=== PATIENT | male | born 1975 | race Caucasian/White ===

== ENCOUNTER 2018-04-18 21:11 | Emergency (ER) | payer OTHER ==
[~2018-04-18] VITALS: Ht 177.8 cm; Wt 93.0 kg
[~2018-04-18 21:11] MED LIST: ALEVE220 MG PO; AMBIEN 10 MG TA10 MG PO; AMITRIPTYLINE H10 M3 PO; FLEXERIL PO; HYDROCODON-ACE1 EAC5 PO; HYDROCODONE-AP1 EAC6 PO; HYDROCODONE-APA1 TA1 PO; IBUPROFEN 800800 M1 PO; KEFLEX500 MG PO; MEDROLDOSEPACK PO; MOM PO; NOHOMEMEDICATIONS; PERCOCET 5-3251 EACH PO; ULTRAM 50MG TAB50 MG PO; VANCOMYCIN1.5 GM/250 IV; VICODIN PO
[2018-04-18] MEDS ORDERED: AMBIEN 5 MG TABL5 M1 (21:19)
[2018-04-18 21:47] LABS: HEMATOCRIT 42.8 % (42.0-52.0); HEMOGLOBIN 14.8 gm/dL (14.0-18.0); MCH 31.5 pg (26.0-34.0); MCHC 34.5 g/dL (28.0-37.0); MCV 91.3 fL (80.0-100.0); MPV 7.6 fl. (7.2-11.1); NUCLEATED RBCS 0 /100WBC; PLATELET COUNT* 395 thou/uL (150-400); RBC 4.69 mil/uL (4.50-6.00); RDW-CV 12.7 % (10.5-14.5); WBC 15.6 thou/uL (4.0-11.0)
[2018-04-18 21:55] LABS: CALCIUM 9.4 mg/dL (8.5-10.1); CREATININE 1.2 mg/dL (0.6-1.3)
[2018-04-18 21:59] LABS: ALBUMIN 3.8 g/dL (3.4-5.0); TOTAL BILIRUBIN 0.3 mg/dL (<0.1-1.0); TOTAL PROTEIN 7.4 g/dL (6.4-8.2)
[2018-04-18 22:16] LABS: ABSOLUTE EOSINOPHILS 0.3 thou/uL (0.0-0.7); ABSOLUTE LYMPHOCYTES 3.6 thou/uL (0.8-5.3); ABSOLUTE MONOCYTES 0.5 thou/uL (0.0-1.2); ABSOLUTE NEUTROPHILS 11.2 thou/uL (1.6-8.1); ANISOCYTOSIS Occasional; PLATELET ESTIMATE ADEQUATE; TOXIC GRANULATION 1+
[2018-04-18 23:09] LABS: URINE CLARITY HAZY; URINE COLOR ORANGE
[2018-04-18] MEDS ORDERED: NORCO 5-325 TA1 EACH PO (23:14)
[2018-04-18] MEDS ORDERED: BACTRIM DS TAB1 EACH PO (23:14)
[2018-04-18 23:16] LABS: ACETEST (KETONE CONFIRMATORY) Negative (Negative); ICTOTEST (BILI CONFIRMATORY) Negative (Negative); URINE BILIRUBIN ND (Negative); URINE BLOOD ND (Negative); URINE GLUCOSE-RANDOM ND (Negative); URINE KETONES ND (Negative); URINE LEUKOCYTES-REFLEX ND (Negative); URINE NITRITE-REFLEX ND (Negative); URINE PROTEIN ND (Negative); URINE REDUCING SUBSTANCE NEGATIVE (Negative); URINE SPECIFIC GRAVITY 1.015 (1.005-1.030); URINE UROBILINOGEN ND E.U./dl (0.2-1.0)
[2018-04-18 23:17] LABS: BACTERIA-REFLEX >30 Many /HPF (None Seen); CASTS None Seen /LPF (None Seen); CRYSTALS None Seen /LPF (None Seen); MUCUS 0-3 Light strn/LPF (None Seen); SQUAMOUS 0-3 Few /LPF (0-3); URINE RBC >20 Many /HPF (0-2); URINE WBC-REFLEX >25 Many /HPF (0-5); WBC CLUMPS Moderate (None Seen)
[2018-04-18] MEDS ORDERED: DOXYCYCLINE 10100 MG PO (23:33)
[2018-04-18 23:46] VITALS: BP 130/67
== END 2018-04-18 23:46 | disposition home or self-care (01) ==
LOC: M.ERS 21:11
PROVIDERS: Physician Assistant
DX: N39.0 Urinary tract infection, site not specified (principal); F17.200 Nicotine dependence, unspecified, uncomplicated; Z98.890 Other specified postprocedural states; Z87.01 Personal history of pneumonia (recurrent)

== ENCOUNTER 2019-07-02 05:48 | Emergency (ER) | payer OTHER ==
[~2019-07-02] VITALS: Ht 177.8 cm; Wt 111.8 kg
[~2019-07-02 05:48] MED LIST changes: +AMBIEN 5 MG TABL5 M1; +BACTRIM DS TAB1 EACH PO; +DOXYCYCLINE 10100 MG PO; +NORCO 5-325 TA1 EACH PO
[2019-07-02] MEDS ORDERED: PERCOCET 5-3251 EACH PO (05:58)
[2019-07-02 06:59] LABS: CALCIUM 8.7 mg/dL (8.5-10.1); CREATININE 1.1 mg/dL (0.6-1.3); POTASSIUM 3.9 mmol/L (3.5-5.1)
[2019-07-02 07:02] LABS: PROTIME 9.9 Seconds (9.20-11.50)
[2019-07-02 07:10] LABS: ALBUMIN 3.9 g/dL (3.4-5.0); TOTAL BILIRUBIN 0.2 mg/dL (<0.1-1.0); TOTAL PROTEIN 7.1 g/dL (6.4-8.2)
[2019-07-02 07:58] LABS: ABSOLUTE BASOPHILS 0.1 thou/uL (0.0-0.2); ABSOLUTE EOSINOPHILS 0.1 thou/uL (0.0-0.7); ABSOLUTE LYMPHOCYTES 1.8 thou/uL (0.8-5.3); ABSOLUTE MONOCYTES 0.6 thou/uL (0.0-1.2); ABSOLUTE NEUTROPHILS 4.1 thou/uL (1.6-8.1); EOSINOPHILS 1.9 %; HEMOGLOBIN 14.6 gm/dL (14.0-18.0); LYMPHOCYTES 26.6 %; MCH 31.3 pg (26.0-34.0); MCHC 34.8 g/dL (28.0-37.0); MPV 8.5 fl. (7.2-11.1); NUCLEATED RBCS 0 /100WBC; PLATELET COUNT* 269 thou/uL (150-400); POLYS 61.5 %; RBC 4.67 mil/uL (4.50-6.00); RDW-CV 13.5 % (10.5-14.5); WBC 6.7 thou/uL (4.0-11.0)
[2019-07-02 09:57] VITALS: BP 116/74
--- NOTE | 2019-07-05 13:56 | EKG ---
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1975 Requested By: Jonathon Marino Order Number: [id number] MD: Kalia Paz Measurements Intervals [place] Rate: 61 P: 30 MA: 129 QRS: 83 QRSD: 112 T: 51 QT: 409 QTc: 412 Interpretive Statements Sinus rhythm Borderline intraventricular conduction delay Baseline wander in lead(s) V1 Compared to ECG 07/02/2019 05:51:39 No significant changes Electronically Signed On 07-03-2019 15:59:09 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
--- NOTE | 2019-07-05 13:56 | EKG ---
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1975 Requested By: Radha Mao Order Number: [id number] MD: Harman Quinones Measurements Intervals [place] Rate: 83 P: 63 MA: 138 QRS: 85 QRSD: 117 T: 36 QT: 366 QTc: 430 Interpretive Statements Sinus rhythm Probable left atrial enlargement Nonspecific intraventricular conduction delay No previous ECG available for comparison Electronically Signed On 07-02-2019 11:03:13 CUFFER by Harman Quinones [email or web address] <ELECTRONICALLY SIGNED> By: Harman Quinones MD, [facility] 07/02/19 1103 0551 0551 Harman Quinones MD, F[facility] /EPI
== END 2019-07-02 09:59 | disposition home or self-care (01) ==
LOC: M.ERS 05:48
PROVIDERS: Emergency Medicine
DX: R07.89 Other chest pain (principal); Z90.79 Acquired absence of other genital organ(s); Z98.890 Other specified postprocedural states